=== PATIENT | female | born 1995 | race Hispanic/Latino ===

== ENCOUNTER 2019-03-27 16:28 | Emergency (ER) | payer SELFPAY ==
[2019-03-27] MEDS ORDERED: FAMOTIDINE 20MG TAB 20 MG TAB ONE (16:47)
[2019-03-27] MEDS ORDERED: ONDANSETRON ODT 4 MG TAB ONE (16:48)
[2019-03-27 17:00] LABS: APPEARANCE,URINE CLEAR (CLEAR); BILIRUBIN,URINE SMALL (NEGATIVE); COLOR,URINE YELLOW (YELLOW); GLUCOSE, URINE (UA) NEGATIVE (NEGATIVE); KETONES,URINE >=80 mg/dL (NEGATIVE); LEUKOCYTE ESTERASE ,URINE NEGATIVE (NEGATIVE); NITRATE,URINE NEGATIVE (NEGATIVE); OCCULT BLOOD,URINE SMALL (NEGATIVE); PH,URINE 6.5 (5.0-8.0); PROTEIN,URINE NEGATIVE (NEGATIVE)
[2019-03-27 17:01] LABS: HCG,QUAL RESULT NEGATIVE (NEGATIVE)
[2019-03-27 17:13] LABS: BACTERIA,URINE Few /HPF (None Seen); MUCUS,URINE Few LPF (None Seen); WBC,URINE 0-1 /HPF (0-1)
== END 2019-03-27 17:22 | disposition home or self-care (01) ==
LOC: EDH 16:28
DX: R11.2 Nausea with vomiting, unspecified (principal); R19.7 Diarrhea, unspecified; E03.9 Hypothyroidism, unspecified; Z98.890 Other specified postprocedural states
CPT/HCPCS: 81001; 81025; 96372

== ENCOUNTER 2019-05-16 15:58 | Emergency (ER) | payer MEDICAID ==
[2019-05-16 16:25] LABS: BASOPHILS % (AUTO) 0.4 % (0.0-5.0); EOSINOPHILS % (AUTO) 2.2 % (0.0-8.0); HEMATOCRIT 39.1 % (36-48); LYMPHOCYTES % (AUTO) 23.8 % (21.0-51.0); MEAN CORPUSCULAR HEMOGLOBIN 34.9 pg (27.0-33.0); MEAN CORPUSCULAR HGB CONC 33.6 g/dL (32.0-36.0); MONOCYTES % (AUTO) 7.5 % (3.0-13.0); NEUTROPHILS % (AUTO) 66.1 % (40.0-77.0); NUCLEATED RED BLOOD CELLS 0.1 % (0.0-0.19); PLATELET COUNT (AUTO) 267 K/uL (130-400); RED BLOOD CELL COUNT(AUTO) 3.77 MIL/uL (4.00-5.50); RED CELL DISTRIBUTION WIDTH 13.8 % (11.0-15.5); WHITE BLOOD COUNT (AUTO) 9.7 K/uL (4.8-10.8)
== END 2019-05-16 17:56 | disposition home or self-care (01) ==
LOC: EDH 15:58
DX: O20.9 Hemorrhage in early pregnancy, unspecified (principal); O99.331 Smoking (tobacco) complicating pregnancy, first trimester; E07.9 Disorder of thyroid, unspecified; Z3A.01 Less than 8 weeks gestation of pregnancy; Z98.890 Other specified postprocedural states
CPT/HCPCS: 36415; 76817; 84443; 84702; 85025; 86900; 86901

== ENCOUNTER 2019-08-06 10:21 | Emergency (ER) | payer MEDICAID ==
[2019-08-06] MEDS ORDERED: DEXAMETHASONE SOD PHOSPHATE 10MG/ML 1ML VIAL ONE (11:58)
[2019-08-06] MEDS ORDERED: SODIUM CHLORIDE 0.9% 1000ML 1,000 ML IV ONE (11:58)
[2019-08-06] MEDS ORDERED: IBUPROFEN 600 MG TABLET ONE (11:58)
== END 2019-08-06 13:16 | disposition home or self-care (01) ==
LOC: EDH 10:21
DX: J10.1 Influenza due to other identified influenza virus with other respiratory manifestations (principal); E07.9 Disorder of thyroid, unspecified
CPT/HCPCS: 87804 ×2; 96374; 99284; J1100; J7030

== ENCOUNTER 2019-08-25 02:59 | Emergency (ER) | payer MEDICAID ==
[2019-08-25] MEDS ORDERED: METOCLOPRAMIDE 10 MG/2 ML VIAL ONE (03:29)
[2019-08-25] MEDS ORDERED: SODIUM CHLORIDE 0.9% 1000ML 1,000 ML IV ONE ×2 (03:30→05:11)
[2019-08-25 03:36] LABS: APPEARANCE,URINE Clear (CLEAR); BILIRUBIN,URINE Negative (NEGATIVE); COLOR,URINE Yellow (YELLOW); GLUCOSE, URINE (UA) Negative (NEGATIVE); KETONES,URINE Trace mg/dL (NEGATIVE); LEUKOCYTE ESTERASE ,URINE Trace (NEGATIVE); NITRATE,URINE Negative (NEGATIVE); OCCULT BLOOD,URINE Moderate (NEGATIVE); PH,URINE 6.5 (5.0-8.0); PROTEIN,URINE Negative (NEGATIVE)
[2019-08-25 03:41] LABS: HCG,QUAL RESULT NEGATIVE (NEGATIVE)
[2019-08-25 03:43] LABS: BACTERIA,URINE Few /HPF (None Seen); MUCUS,URINE Few LPF (None Seen); SQUAMOUS EPITHELIAL CELL,UR 0-2 /HPF (0-2)
[2019-08-25 04:03] LABS: BASOPHILS % (AUTO) 0.2 % (0.0-5.0); EOSINOPHILS % (AUTO) 0.4 % (0.0-8.0); HEMATOCRIT 34.2 % (36-48); LYMPHOCYTES % (AUTO) 8.6 % (21.0-51.0); MEAN CORPUSCULAR HEMOGLOBIN 33.5 pg (27.0-33.0); MEAN CORPUSCULAR HGB CONC 33.9 g/dL (32.0-36.0); MEAN CORPUSCULAR VOLUME 98.8 fL (79-99); MONOCYTES % (AUTO) 6.2 % (3.0-13.0); PLATELET COUNT (AUTO) 251 K/uL (130-400); RED BLOOD CELL COUNT(AUTO) 3.46 MIL/uL (4.00-5.50); RED CELL DISTRIBUTION WIDTH 13.2 % (11.0-15.5); WHITE BLOOD COUNT (AUTO) 16.7 K/uL (4.8-10.8)
[2019-08-25 04:15] LABS: PARTIAL THROMBOPLASTIN TIME 28.6 SEC (26.3-35.5); PROTHROMBIN TIME 10.5 SEC (9.6-11.6)
[2019-08-25 04:16] LABS: CREATININE 0.6 mg/dL (0.5-1.5); POTASSIUM 3.9 mmol/L (3.5-5.1)
[2019-08-25] MEDS ORDERED: IOHEXOL-350 75 ML VIAL IV ONE (04:20)
[2019-08-25 04:22] LABS: ALBUMIN 3.7 g/dL (3.5-5.0); BILIRUBIN,TOTAL 1.1 mg/dL (0.2-1.0)
[2019-08-25 04:44] LABS: PLATELET MORPHOLOGY PLT CLUMPS PRESENT
[2019-08-25] MEDS ORDERED: CEFTRIAXONE SODIUM 1 GM ONE (05:33)
[2019-08-25] MEDS ORDERED: KETOROLAC TROMETHAMINE 60 MG/2 ML VIAL ONE (05:33)
[2019-08-25] MEDS ORDERED: KETOROLAC TROMETHAMINE 15MG/ML ONE (05:34)
== END 2019-08-25 06:49 | disposition home or self-care (01) ==
LOC: EDH 02:59
DX: N12 Tubulo-interstitial nephritis, not specified as acute or chronic (principal); R10.2 Pelvic and perineal pain; R19.7 Diarrhea, unspecified; E07.9 Disorder of thyroid, unspecified; Z98.890 Other specified postprocedural states
CPT/HCPCS: 36415; 74177; 76856; 80053; 81001; 81025; 82550; 83605; 83690; 85025; 85610; 85730; 96361; 96374; 96375; 99285; J0696; J1885 ×2; J2765; J7030 ×2; Q9967

== ENCOUNTER 2019-10-02 23:52 | Emergency (ER) | payer MEDICAID ==
[2019-10-02] MEDS ORDERED: ACETAMINOPHEN EXTRA STRENGTH 500 MG TABLET ONE (23:59)
[2019-10-03 00:32] LABS: RAPID GROUP A STREP NEGATIVE (NEGATIVE)
== END 2019-10-03 01:06 | disposition home or self-care (01) ==
LOC: EDH 23:52
DX: B34.9 Viral infection, unspecified (principal); R50.9 Fever, unspecified; J02.9 Acute pharyngitis, unspecified; Z90.49 Acquired absence of other specified parts of digestive tract
CPT/HCPCS: 87804; 87880

== ENCOUNTER 2020-05-08 20:30 | Emergency (ER) | payer MEDICAID ==
[2020-05-08] MEDS ORDERED: ACETAMINOPHEN EXTRA STRENGTH 500 MG TABLET ONE (20:54)
[2020-05-08] MEDS ORDERED: TRAMADOL HCL 50 MG TABLET ONE (21:36)
== END 2020-05-08 22:08 | disposition home or self-care (01) ==
LOC: EDH 20:30
DX: S05.12XA Contusion of eyeball and orbital tissues, left eye, initial encounter (principal); Z90.49 Acquired absence of other specified parts of digestive tract; Y08.89XA Assault by other specified means, initial encounter; Y93.89 Activity, other specified; Y92.098 Other place in other non-institutional residence as the place of occurrence of the external cause; Y99.8 Other external cause status
CPT/HCPCS: 70486; 81025

== ENCOUNTER 2021-09-25 14:22 | Emergency (ER) | payer MEDICAID ==
[~2021-09-25] VITALS: Ht 149.9 cm; Wt 71.2 kg
[2021-09-25] MEDS ORDERED: PROMETHAZINE HCL 25 MG/ML 1ML AMPULE IM SCH (15:00)
[2021-09-25] MEDS ORDERED: 0.9% NACL 500ML IV.SOLN 500 ML IV SCH (15:00)
[2021-09-25] MEDS ORDERED: ACETAMINOPHEN 500 MG TABLET PO SCH (15:00)
[2021-09-25 15:17] LABS: BASOPHILS % (AUTO) 0.3 % (0.0-5.0); EOSINOPHILS % (AUTO) 1.2 % (0.0-8.0); HEMATOCRIT 33.6 % (36-48); LYMPHOCYTES % (AUTO) 16.3 % (21.0-51.0); MEAN CORPUSCULAR HEMOGLOBIN 32.8 pg (27.0-33.0); MEAN CORPUSCULAR HGB CONC 33.6 g/dL (32.0-36.0); MEAN CORPUSCULAR VOLUME 97.4 fL (79-99); MONOCYTES % (AUTO) 4.4 % (3.0-13.0); NEUTROPHILS % (AUTO) 77.6 % (40.0-77.0); PLATELET COUNT (AUTO) 240 K/uL (130-400); RED BLOOD CELL COUNT(AUTO) 3.45 MIL/uL (4.00-5.50); RED CELL DISTRIBUTION WIDTH 12.9 % (11.0-15.5); WHITE BLOOD COUNT (AUTO) 8.9 K/uL (4.8-10.8)
[2021-09-25 15:17] LABS: APPEARANCE,URINE Cloudy (CLEAR); BILIRUBIN,URINE Negative (NEGATIVE); COLOR,URINE Yellow (YELLOW); GLUCOSE, URINE (UA) Negative (NEGATIVE); KETONES,URINE >=160 mg/dL (NEGATIVE); LEUKOCYTE ESTERASE ,URINE Small (NEGATIVE); NITRATE,URINE Negative (NEGATIVE); OCCULT BLOOD,URINE Negative (NEGATIVE); PH,URINE 7.5 (5.0-8.0); PROTEIN,URINE Negative (NEGATIVE)
[2021-09-25 15:26] LABS: CREATININE 0.5 mg/dL (0.5-1.5); POTASSIUM 3.5 mmol/L (3.5-5.1)
[2021-09-25 15:32] LABS: BACTERIA,URINE Few /HPF (None Seen); MUCUS,URINE Few LPF (None Seen); RBC,URINE 0-1 /HPF (0-1); SQUAMOUS EPITHELIAL CELL,UR Moderate /HPF (0-2)
[2021-09-25 15:51] LABS: ALBUMIN 3.6 g/dL (3.5-5.0); BILIRUBIN,TOTAL 0.8 mg/dL (0.2-1.0); TOTAL PROTEIN, SERUM 7.6 g/dL (6.0-8.3)
[2021-09-25] MEDS ORDERED: 0.9%NACL 50ML 50 ML IV ONE (15:55)
[2021-09-25] MEDS ORDERED: CEFTRIAXONE 1G VIAL IVP SCH (16:00)
[2021-09-25] MEDS ORDERED: PHEN12S PR (16:30)
[2021-09-25] MEDS ORDERED: ACET-2247 PO (16:30)
[2021-09-25] MEDS ORDERED: CEPH500B PO (16:31)
[2021-09-25 16:50] VITALS: BP 102/63
== END 2021-09-25 17:13 | disposition home or self-care (01) ==
LOC: EDH 14:22
DX: O23.41 Unspecified infection of urinary tract in pregnancy, first trimester (principal); O26.891 Other specified pregnancy related conditions, first trimester; G43.009 Migraine without aura, not intractable, without status migrainosus; E03.9 Hypothyroidism, unspecified; Z3A.14 14 weeks gestation of pregnancy
CPT/HCPCS: 36415; 80053; 81001; 84702; 85025; 86140; 96360; 96372; 99283; J2550; J7040; J0696